=== PATIENT | male | born 1955 | race Caucasian/White ===

== ENCOUNTER 2022-05-24 11:58 | Emergency (ER) | payer MEDICAID, SELFPAY ==
[2022-05-24] VITALS (34 sets, daily range): BP systolic 112–119; BP diastolic 68–85; PULSE 69–95; RESP 12–25; TEMP 36.9; O2SAT 90–99; BMI 22.3
--- NOTE | 2022-05-24 12:32 | PC.NURSE ---
patient placed on monitoring manager, continuous pulse ox, and BP monitor
--- NOTE | 2022-05-24 12:48 | W.ED.NEUROSD ---
HPI - Neuro Symptoms/Deficit General: Chief Complaint: Neuro Symptoms/Deficit Stated Complaint: Both legs are going numb and fingers too. Time Seen by Provider: 05/24/22 12:11 Source: patient and family Mode of arrival: ambulatory Limitations: no limitations History of Present Illness: This patient was directed to the emergency department from her primary care clinic in the region. He has a history of B12 and folate deficiency and states he has been doing pretty well and has been taking his B12 injections for the last several weeks. He states he has intermittent numbness and tingling sensations in both upper and lower extremities from time to time. He also states he feels, but numb or tingling sensation in a band around his upper abdomen. He denies any focal weakness. He states he does have some difficulty walking normally because of the loss of sensation in his feet. He is a smoker but denies any history of diabetes. He does drink alcohol on a daily basis as well. He denies any fevers, trauma, loss of bowel or bladder control etc. No headache, no difficulty with speech. No recent illness or fevers. Associated symptoms: Deny chest pain, headache(s), nausea, syncope, vertigo or vomiting Review of Systems Const: Denies: fever(s) or chills Eyes: Denies: change in vision ENMT: Denies: odynophagia Card: Denies: chest pain, palpitations, irregular heart rhythm, syncope or pre-syncope Resp: Denies: productive cough or non-productive cough GI: Reports: constipation; Denies: nausea or vomiting : Denies: flank pain, difficulty urinating or dysuria Musc: Reports: extremity pain; Denies: back pain, extremity swelling, joint swelling or joint redness Skin/Breast: Denies: rash or pruritus Neuro: Reports: numbness in extremities; Denies: headache(s), weakness in extremities, frequent falls, dizziness, vertigo or restless legs Jaun/Lymph: Denies: easy bruising or easy bleeding Physical Exam Narrative: EXAM NARRATIVE: He is alert makes good eye contact answers questions in a goal-directed fashion. Appears comfortable. Const: COMMON NORMALS: no acute distress, average body habitus, patient oriented x3 and alert GENERAL APPEARANCE: cooperative and comfortable ORIENTATION/CONSCIOUSNESS: Yes awake HENMT: COMMON NORMALS: normocephalic and Normal nasal mucous membranes and turbinates present HEAD & SCALP: normocephalic FACE & SINUS: normal facial exam NOSE: Normal nasal mucous membranes and turbinates present TEETH & GINGIVA: Yes poor dentition Eye: COMMON NORMALS: Equal, round and reactive pupils present, EOMs intact bilaterally and conjunctivae normal CONJUNCTIVA: Yes conjunctivae normal PUPIL: Yes Equal, round and reactive pupils present Neck/C-Spine: COMMON NORMALS: full ROM, no lymphadenopathy, no JVD and No carotid bruits Chest: COMMONS NORMALS: normal inspection of the chest Resp: COMMON NORMALS: normal respiratory effort, No retractions, No use of accessory muscles and clear to auscultation bilaterally AUSCULTATION: clear to auscultation bilaterally Cardio: COMMON NORMALS: no JVD, regular rate, regular rhythm, No murmurs present (Cardio) and Peripheral pulses 2+ throughout RATE: regular rate RHYTHM: regular rhythm PERIPHERAL PULSES: Peripheral pulses 2+ throughout GI: COMMON NORMALS: Normal to inspection, nondistended, normoactive bowel sounds present, Soft to palpation, non-tender and no masses PALPATION: Yes Soft to palpation : COMMON NORMALS: Yes no CVA tenderness BLADDER/KIDNEY EXAM: Yes no CVA tenderness Back/Pelvis: COMMON NORMALS: no CVA tenderness, thoracic and lumbar spine normal to inspection, no thoracic nor lumbar tenderness, thoraco-lumbar ROM normal and straight leg raise negative bilaterally Extremity: COMMON NORMALS: normal to inspection, full ROM, capillary refill normal, no calf tenderness and no pedal edema Neuro: COMMON NORMALS: patient oriented x3 and moves all extremities SENSORIUM/ORIENTATION: Yes alert CRANIAL NERVES: Yes CN normal except as noted COORDINATION/BALANCE: [id number] test normal and [id number]-[id number] test normal SPEECH: speech normal MOTOR EXAM: 5/5 motor strength present throughout, Pronator motor function not present, no tremor noted and Motor fasciculations not present COORDINATION: [id number] test normal and [id number] test normal Psych: COMMON NORMALS: mental status grossly normal Skin: COMMON NORMALS: no rashes or lesions noted and turgor normal GENERAL SKIN EXAM: no rashes or lesions noted and turgor normal Course Reevaluation(s): Reevaluation #1: Patient remained stable. No new or focal findings on repeat examination. Discussed current findings and need to discontinue alcohol, continue his B12 and folate. We will give him a trial of gabapentin for neuropathy symptoms. No evidence of an ongoing emergency medical condition at this time. Time: 15:48 Vital Signs: Vital signs: Vital Signs Temperature 98.5 F 05/24/22 12:02 Pulse Rate 72 05/24/22 14:55 Respiratory Rate 22 H 05/24/22 14:55 Blood Pressure 112/85 05/24/22 14:55 Pulse Oximetry 97 05/24/22 14:55 Oxygen Delivery Me thod 05/24/22 12:22 MDM - Neuro Symptoms/Deficit Medical Decision Making This patient was referred to the emergency department by his primary care clinic for possible need for a banana bag. He apparently not been taking his B12 and folate for his combined B12 deficiency for some time and is notable for increasing leg pain and difficulty with walking and other noncontiguous peripheral neuropathy symptoms such as arm numbness and leg numbness. His clinical evaluation is not remarkable for any focal findings other than subjective altered sensation in his extremities. No history or current evidence of other focal findings. We will extremely low likelihood of a [employer] issue and most consistent with a peripheral neuropathy likely due to his chronic alcohol use as well as his nonadherence with his prescribed medications. He remained stable during throughout his emergency department stay. Laboratories remarkable in that he had a macrocytosis consistent with his B12 deficiency. B12 and folate levels were obtained however those were not available at the time of his discharge. I discussed the need for avoidance of alcohol. We will have him continue his usual medications as well as we will add gabapentin to help some of his subjective peripheral neuropathy symptoms. Medical Records I reviewed the patient's medical records. Lab Data I reviewed the patient's lab results. 05/24/22 12:30 05/24/22 12:30 Laboratory Results WBC 8.2 10^3/uL (4.0-10.0) 05/24/22 12:30 RBC 3.65 10^6/uL (4.1-5.3) L 05/24/22 12:30 Hgb 13.5 g/dL (11.7-16.6) 05/24/22 12:30 Hct 39.6 % (42.0-52.0) L 05/24/22 12:30 MCV 108.5 fl (80-94) H 05/24/22 12:30 MCH 37.0 pg (28.0-34.0) H 05/24/22 12:30 MCHC 34.1 g/dL (30.0-36.0) 05/24/22 12:30 RDW 14.5 % (12.1-15.1) 05/24/22 12:30 Plt Count 265 10^3/cmm (130-400) 05/24/22 12:30 MPV 10.7 fL (7.4-10.4) H 05/24/22 12:30 Neut % (Auto) 53.6 % 05/24/22 12:30 Lymph % (Auto) 33.9 % 05/24/22 12:30 [place] % (Auto) 10.6 % 05/24/22 12:30 Eos % (Auto) 1.0 % 05/24/22 12: Baso % (Auto) 0.7 % 05/24/22 12:30 Neut # (Auto) 4.38 10^3/uL (1.8-7.7) 05/24/22 12:30 Lymph # (Auto) 2.8 10^3/uL (0.8-4.8) 05/24/22 12:30 [place] # (Auto) 0.9 10^3/uL (0.2-0.9) 05/24/22 12:30 Eos # (Auto) 0.1 10^3/uL (0.0-0.8) 05/24/22 12:30 Baso # (Auto) 0.1 10^3/uL (0.0-0.1) 05/24/22 12:30 Nucleated RBC % (auto) 0 % 05/24/22 12: Nucleated RBCs # 0.0 /100WBC 05/24/22 12:30 Sodium 134 mmol/L (136-145) L 05/24/22 12:30 Potassium 4.0 mmol/L (3.5-5.1) 05/24/22 12:30 Chloride 98 mmol/L (98-107) 05/24/22 12:30 Carbon Dioxide 22 mmol/L (22-29) 05/24/22 12:30 Anion Gap 18.0 (5-19) 05/24/22 12:30 BUN 4 mg/dL (8-23) L 05/24/22 12:30 Creatinine 0.6 mg/dL (0.7-1.2) L 05/24/22 12:30 GFR Calculation 135.6 mL/min (90-130) H 05/24/22 12:30 Glucose 113 mg/dL (65-115) 05/24/22 12:30 Calculated Osmolality 276 mOsm/kg (285-295) L 05/24/22 12:30 Calcium 8.9 mg/dL (8.5-10.5) 05/24/22 12:30 Magnesium 1.8 mg/dL (1.7-2.3) 05/24/22 12:30 Total Bilirubin 0.9 mg/dL (0.15-1.2) 05/24/22 12:30 AST 74 U/L (0-40) H 05/24/22 12:30 ALT 27 U/L (0-41) 05/24/22 12:30 Alkaline Phosphatase 132 U/L (40-130) H 05/24/22 12:30 Total Protein 7.1 g/dL (6.6-8.7) 05/24/22 12:30 Albumin 3.7 g/dL (3.5-5.2) 05/24/22 12:30 Globulin 3.4 g/dL (1.3-4.6) 05/24/22 12:30 Discharge Plan Discharge Patient Disposition: Home Clinical Impression: Vitamin B12 deficient megaloblastic anemia, Peripheral neuropathy, Alcohol abuse Condition: Stable Prescriptions: New gabapentin 300 mg capsule 300 mg PO Q12H Qty: 60 0RF No Action losartan 50 mg tablet 50 mg PO DAILY ipratropium-albuterol 0.5 mg-3 mg(2.5 mg base)/3 mL solution for nebulization 3 ml INHALATION BID PRN (Reason: Shortness Of Breath) cetirizine 10 mg tablet 10 mg PO DAILY tramadol 50 mg tablet 50 - 100 mg PO Q6H PRN (Reason: Pain) cyanocobalamin (vitamin B-12) 1,000 mcg/mL solution 1,000 mcg IM Q7D Rx Instructions: ON TUESDAYS folic acid 1 mg tablet 1 mg PO DAILY Constulose 10 gram/15 mL solution 10 g PO BID PRN (Reason: Constipation) Discharge Orders: Discharge ED (Routine); Ordered 05/24/22 Ordered By: Marty Ramos Discharge Diet: Usual diet Discharge Activity: Increase activity as tolerated Patient Instructions: Opioid Safety, Pain Management Activity Restrictions/Additional Instructions: Do not drink alcohol as this worsens her peripheral neuropathy. Restart your vitamin B12 injections as well as your folate pills. We have also prescribed a new medication to help with some of your peripheral neuropathy pain. Follow-up with your doctor in the next 3 to 4 weeks for reevaluation. If you develop any worsening symptoms or concerning symptoms at any time return to this or the nearest emergency department for reevaluation. Coding Level of Care Code ED Laryngologist for Jonny Nuñez Exam Comprehensive
[2022-05-24 13:06] LABS: Basophils # 0.1 10^3/uL (0.0-0.1); Basophils % 0.7 %; Eosinophils # 0.1 10^3/uL (0.0-0.8); Hematocrit 39.6 % (42.0-52.0); Hemoglobin 13.5 g/dL (11.7-16.6); Lymphocytes # 2.8 10^3/uL (0.8-4.8); Lymphocytes % 33.9 %; Mean Corpuscular HGB Conc 34.1 g/dL (30.0-36.0); Mean Corpuscular Volume 108.5 fl (80-94); Mean Platelet Volume 10.7 fL (7.4-10.4); Monocytes # 0.9 10^3/uL (0.2-0.9); Monocytes % 10.6 %; Neutrophils # 4.38 10^3/uL (1.8-7.7); Neutrophils % 53.6 %; Nucleated Red Blood Cells % 0 %; Platelet Count 265 10^3/cmm (130-400); Red Blood Count 3.65 10^6/uL (4.1-5.3); Red Cell Distribution Width 14.5 % (12.1-15.1); White Blood Count 8.2 10^3/uL (4.0-10.0)
[2022-05-24 13:12] LABS: Alanine Aminotransferase 27 U/L (0-41); Albumin Level 3.7 g/dL (3.5-5.2); Alkaline Phosphatase 132 U/L (40-130); Aspartate Amino Transferase 74 U/L (0-40); Blood Urea Nitrogen 4 mg/dL (8-23); Calcium 8.9 mg/dL (8.5-10.5); Carbon Dioxide 22 mmol/L (22-29); Chloride 98 mmol/L (98-107); Globulin 3.4 g/dL (1.3-4.6); Glomerular Filtration Rate 135.6 mL/min (90-130); Glucose 113 mg/dL (65-115); Magnesium 1.8 mg/dL (1.7-2.3); Osmolality Calculated 276 mOsm/kg (285-295); Sodium 134 mmol/L (136-145); Total Bilirubin 0.9 mg/dL (0.15-1.2); Total Protein 7.1 g/dL (6.6-8.7)
[2022-05-24] MEDS: magnesium sulfate premix 2 GM/50 ML PIGGYBACK IV (14:00)
[2022-05-24] MEDS: HYDROcodone-acetaminophen 5-325 mg Tablet 1 TAB PO (14:00)
[2022-05-24] MEDS: gabapentin 300 mg Capsule PO (15:57)
[2022-05-24 17:09] LABS: Vitamin B12 1068 pg/mL (232-1245)
[2022-05-24 17:36] LABS: Folate Level > 20.0 ng/mL (4.5-32.2)
== END 2022-05-24 16:04 | disposition home or self-care (01) ==
PROVIDERS: Emergency Provider Emergency Medicine
DX: D53.1 Other megaloblastic anemias, not elsewhere classified (principal); F10.10 Alcohol abuse, uncomplicated; G62.9 Polyneuropathy, unspecified
CPT/HCPCS: 80053; 82607; 82746; 83735; 85025; 96360; 99284; J3475